=== PATIENT | male | born 1965 | race American Indian/Alaskan Native ===

== ENCOUNTER 2019-06-20 09:17 | Observation (INO) | payer MEDICARE ==
--- NOTE | 2019-06-20 11:09 | Emergency Department Report ---
ED General Adult HPI - General Chief complaint: Extremity Problem,Nontraumatic Stated complaint: LEG PAIN Time Seen by Provider: 06/20/19 11:00 Source: patient Mode of arrival: Wheelchair Limitations: No Limitations - History of Present Illness Initial comments: His is a 53-year-old male with a history of schizophrenia. He called the ambulance today for evaluation of swelling behind his right knee. Somehow this was confused with a exacerbation of his gout. However the patient denies any swelling of any of his joints to include his knees or MTP of either side. He states he had a cramp in the right popliteal fossa area last night which was more severe. He thought the area was swollen today so he decides: Ambulance. A she denies any shortness of breath. He denies any other symptoms at the time of my encounter. He states he is unaware of any occurrence of venous thromboembolism (blood clots) and a family member. He's not had any recent t ravel. -: Gradual, hour(s) Location: right, lower extremity Radiation: non-radiation Quality: other (cramping) Consistency: now resolved Improves with: none Worsens with: none Associated Symptoms: denies other symptoms Treatments Prior to Arrival: none - Related Data Home Medications Medication Instructions Recorded Confirmed Last Taken OLANzapine [Zyprexa] 10 mg PO DAILY 06/10/19 06/10/19 06/09/19 Previous Rx's Medication Instructions Recorded Last Taken Type ALBUTEROL Inhaler (OR & NICU) 2 puff IH QID PRN 30 Days #1 vial 06/13/19 Unknown Rx [Proair] Amoxicillin/Potassium Clav 1 each PO BID #8 tablet 06/13/19 Unknown Rx [Augmentin 875-125 Tablet] Fluticasone/Salmeterol [Advair 1 each IH BID 30 Days blst.w.dev 06/13/19 Unknown Rx 250-50 Diskus] Ipratropium/Albuterol Sulfate 1 ampul IH Q6HRT #30 ampul.neb 06/13/19 Unknown Rx [DUONEB *Not for PRN Use*] Lisinopril [Zestril TAB] 40 mg PO QDAY #30 tablet 06/13/19 Unknown Rx Nicotine [Habitrol] 14 mg TD QDAY #5 patch 06/13/19 Unknown Rx predniSONE [Deltasone] 50 mg PO QDAY #7 tab 06/13/19 Unknown Rx Allergies Allergy/AdvReac Type Severity Reaction Status Date / Time No Known Allergies Allergy Unverified 06/10/19 06:29 ED Review of Systems ROS: Stated complaint: LEG PAIN Other details as noted in HPI Constitutional: denies: chills, fever Eyes: denies: eye pain, eye discharge, vision change ENT: denies: ear pain, throat pain Respiratory: denies: cough, shortness of breath, wheezing Cardiovascular: denies: chest pain, palpitations Endocrine: no symptoms reported Gastrointestinal: denies: abdominal pain, nausea, diarrhea Genitourinary: denies: urgency, dysuria Musculoskeletal: as per HPI. denies: back pain, joint swelling, arthralgia Skin: denies: rash, lesions Neurological: denies: headache, weakness, paresthesias Psychiatric: denies: anxiety, depression Hematological/Lymphatic: denies: easy bleeding, easy bruising ED Past Medical Hx - Past Medical History Hx Psychiatric Treatment: Yes (schizophrenia) Hx Asthma: Yes (childhood) - Surgical History Past Surgical History?: No - Social History Smoking Status: Current Every Day Smoker Substance Use Type: Alcohol - Medications Home Medications: Home Medications Medication Instructions Recorded Confirmed Last Taken Type OLANzapine [Zyprexa] 10 mg PO DAILY 06/10/19 06/10/19 06/09/19 History ALBUTEROL Inhaler (OR & NICU) 2 puff IH QID PRN 30 Days #1 vial 06/13/19 Unknown Rx [Proair] Amoxicillin/Potassium Clav 1 each PO BID #8 tablet 06/13/19 Unknown Rx [Augmentin 875-125 Tablet] Fluticasone/Salmeterol [Advair 1 each IH BID 30 Days blst.w.dev 06/13/19 Unknown Rx 250-50 Diskus] Ipratropium/Albuterol Sulfate 1 ampul IH Q6HRT #30 ampul.neb 06/13/19 Unknown R x [DUONEB *Not for PRN Use*] Lisinopril [Zestril TAB] 40 mg PO QDAY #30 tablet 06/13/19 Unknown Rx Nicotine [Habitrol] 14 mg TD QDAY #5 patch 06/13/19 Unknown Rx predniSONE [Deltasone] 50 mg PO QDAY #7 tab 06/13/19 Unknown Rx ED Physical Exam - General Limitations: No Limitations General appearance: alert, in no apparent distress - Head Head exam: Present: atraumatic, normocephalic - Eye Eye exam: Present: normal appearance. Absent: scleral icterus - ENT ENT exam: Present: mucous membranes moist - Neck Neck exam: Present: normal inspection. Absent: tenderness, meningismus - Respiratory Respiratory exam: Present: normal lung sounds bilaterally. Absent: respiratory distress - Cardiovascular Cardiovascular Exam: Present: regular rate, normal rhythm. Absent: systolic murmur, diastolic murmur, rubs, gallop - GI/Abdominal GI/Abdominal exam: Present: soft, normal bowel sounds. Absent: distended, tenderness, guarding, rebound - Rectal Rectal exam: Present: deferred - Extremities Exam Extremities exam: Present: normal inspection, full ROM, normal capillary refill, other (there appears to be possibly some fullness in the right popliteal fossa compared to the left but no cord and no tenderness found.). Absent: tenderness, pedal edema, joint swelling, calf tenderness - Back Exam Back exam: Present: normal inspection - Neurological Exam Neurological exam: Present: alert, oriented X3, CN II-XII intact. Absent: motor sensory deficit - Psychiatric Psychiatric exam: Present: normal affect, normal mood - Skin Skin exam: Present: warm, dry, intact, normal color. Absent: rash ED Course Vital Signs 06/20/19 06/20/19 06/20/19 09:22 11:02 14:30 Temperature 97.6 F Pulse Rate 105 H 85 Respiratory 20 16 16 Rate Blood Pressure 126/87 Blood Pressure 136/86 [Left] O2 Sat by Pulse 96 96 Oximetry - Reevaluation(s) Reevaluation #1: Still unable to get Doppler exam done. Patient found to be in rhabdomyolysis. He has leukocytosis. Uncertain etiology of his leg pain. Differential diagnosis certainly still includes DVT. Further workup is pending. Discussed with Dr. Wang: Insufficient data for safe discharge. 06/20/19 15:13 ED Medical Decision Making - Lab Data Result diagrams: 06/20/19 11:08 06/20/19 11:08 Laboratory Results - last 24 hr 06/20/19 06/20/19 06/20/19 11:08 11:08 11:08 WBC 19.5 H RBC 4.63 Hgb 14.3 Hct 43.2 MCV 94 MCH 31 MCHC 33 RDW 14.2 Plt Count 320 Lymph % (Auto) 17.8 Walker % (Auto) 6.1 Eos % (Auto) 0.5 Baso % (Auto) 0.5 Lymph # 3.5 Walker # 1.2 H Eos # 0.1 Baso # 0.1 Seg Neutrophils % 75.1 H Seg Neutrophils # 14.7 H PT 13.1 INR 1.02 APTT 24.3 Sodium 141 Potassium 3.2 L Chloride 96.9 L Carbon Dioxide 29 Anion Gap 18 BUN 9 Creatinine 1.0 Estimated GFR > 60 BUN/Creatinine Ratio 9 Glucose 100 Calcium 9.0 Total Bilirubin 0.40 Direct Bilirubin < 0.2 Indirect Bilirubin 0.2 AST 32 ALT 44 Alkaline Phosphatase 57 Total Creatine Kinase CK-MB (CK-2) CK-MB (CK-2) Rel Index Total Protein 7.8 Albumin 4.1 Albumin/Globulin Ratio 1.1 06/20/19 11:15 WBC RBC Hgb Hct MCV MCH MCHC RDW Plt Count Lymph % (Auto) [place] % (Auto) Eos % (Auto) Baso % (Auto) Lymph # Walker # Eos # Baso # Seg Neutrophils % Seg Neutrophils # PT INR APTT Sodium Potassium Chloride Carbon Dioxide Anion Gap BUN Creatinine Estimated GFR BUN/Creatinine Ratio Glucose Calcium Total Bilirubin Direct Bilirubin Indirect Bilirubin AST ALT Alkaline Phosphatase Total Creatine Kinase 1694 H CK-MB (CK-2) 2.1 CK-MB (CK-2) Rel Index 0.1 Total Protein Albumin Albumin/Globulin Ratio Critical care attestation.: If time is entered above; I have spent that time in minutes in the direct care of this critically ill patient, excluding procedure time. ED Disposition Clinical Impression: Right leg pain, Hypokalemia Rhabdomyolysis Qualifiers: Rhabdomyolysis type: non-traumatic Qualified Code(s): M62.82 - Rhabdomyolysis Leukocytosis Qualifiers: Leukocytosis type: unspecified Qualified Code(s): D72.829 - Elevated white blood cell count, unspecified Schizophrenia Qualifiers: Schizophrenia type: unspecified Qualified Code(s): F20.9 - Schizophrenia, unspecified Disposition: OP ADMIT IP TO THIS HOSP Is pt being admited?: Yes Does the pt Need Aspirin: Yes Condition: Stable Time of Disposition: 15:16
[2019-06-20 11:23] LABS: Basophils # (Auto) 0.1 K/mm3 (0.0-0.1); Basophils % (Auto) 0.5 % (0.0-1.8); Eosinophils # (Auto) 0.1 K/mm3 (0.0-0.4); Eosinophils % (Auto) 0.5 % (0.0-4.3); Hematocrit 43.2 % (35.5-45.6); Hemoglobin 14.3 gm/dl (11.8-15.2); Lymphocytes # (Auto) 3.5 K/mm3 (1.2-5.4); Lymphocytes % (Auto) 17.8 % (13.4-35.0); Mean Corpuscular HGB Conc 33 % (32-34); Mean Corpuscular Volume 94 fl (84-94); Monocytes # (Auto) 1.2 K/mm3 (0.0-0.8); Monocytes % (Auto) 6.1 % (0.0-7.3); Platelet Count 320 K/mm3 (140-440); Red Blood Count 4.63 M/mm3 (3.65-5.03); Red Cell Distribution Width 14.2 % (13.2-15.2)
[2019-06-20 11:34] LABS: INR 1.02 (0.87-1.13)
[2019-06-20 11:35] LABS: Partial Thromboplastin Time 24.3 Sec. (24.2-36.6)
[2019-06-20 11:38] LABS: Creatine Kinase MB 2.1 ng/mL (0.0-4.0)
[2019-06-20 11:40] LABS: Alanine Aminotransferase 44 units/L (7-56); Albumin 4.1 g/dL (3.9-5); BUN/Creatinine Ratio 9; Blood Urea Nitrogen 9 mg/dL (9-20); Hemolysis Index 23
[2019-06-20 11:41] LABS: Bilirubin,Direct < 0.2 mg/dL (0-0.2)
[2019-06-20] MEDS ORDERED: HYDROcodone/ACETAMINOPHEN 5-325 MG TAB PO ONE (12:02)
[2019-06-20] MEDS ORDERED: SODIUM CHLORIDE 0.9% 1000 ML 1,000 ML IV ONE ×2 (12:28→15:06)
[2019-06-20] MEDS ORDERED: POTASSIUM CHLORIDE ER 20 MEQ TAB PO ONE (12:28)
[2019-06-20] MEDS ORDERED: ASPIRIN 325 MG TAB PO ONE (15:17)
--- NOTE | 2019-06-20 15:34 | XRay Report ---
CHEST 1 VIEW 3:07 PM INDICATION / CLINICAL INFORMATION: Hypertension. Bilateral leg pain. COMPARISON: 06/10/2019. FINDINGS: SUPPORT DEVICES: None. HEART / MEDIASTINUM: The heart size and pulmonary vasculature are normal. The aorta is normal in [place]. LUNGS / PLEURA: Mild bibasilar subsegmental atelectasis is new. No pneumothorax. ADDITIONAL FINDINGS: No significant additional findings. IMPRESSION: Mild bibasilar subsegmental atelectasis. Signer Name: Manjit Ruiz MD Signed: 06/20/2019 3:30 PM Workstation Name: [id number]
--- NOTE | 2019-06-20 15:35 | XRay Report ---
RIGHT KNEE 2 VIEWS INDICATION / CLINICAL INFORMATION: right knee pain COMPARISON: None available. FINDINGS: BONES and JOINT(S): No acute fracture or subluxation. No significant arthritis. SOFT TISSUES: No significant abnormality. ADDITIONAL FINDINGS: None. IMPRESSION: No acute abnormality of the right knee. Signer Name: Cj Bear MD Signed: 06/20/2019 3:30 PM Workstation Name: [id number]
--- NOTE | 2019-06-20 16:33 | Vascular Lab Report ---
DUPLEX DOPPLER LOWER EXTREMITY VEINS, RIGHT INDICATION: Right popliteal fossa pain. TECHNIQUE: Duplex doppler imaging was performed through the veins of the right lower extremity using venous comp ression and other maneuvers. COMPARISON: None available. FINDINGS: Common femoral vein: Negative. Superficial femoral vein: Negative. Popliteal vein: Negative. Calf veins: Negative. Additional findings: There is no evidence of a popliteal cyst or other significant abnormality. IMPRESSION: No sonographic evidence for DVT in the right lower extremity. Signer Name: Manjit Ruiz MD Signed: 06/20/2019 4:28 PM Workstation Name: [id number]
[2019-06-20] MEDS ORDERED: ALBUTEROL 8.5 GM INHALATION IH PRN (19:01)
[2019-06-20] MEDS ORDERED: ONDANSETRON 4 MG/2 ML INJ IV PRN (19:03)
[2019-06-20] MEDS ORDERED: ACETAMINOPHEN 325 MG TAB PO PRN (19:03)
[2019-06-20] MEDS ORDERED: HYDROmorphone 1 MG/1 ML INJ IV PRN (19:03)
[2019-06-20] MEDS ORDERED: ALBUTEROL 2.5 MG/3 ML NEBU IH PRN (19:19)
[2019-06-20] MEDS: oxyCODONE /ACETAMINOPHEN 5-325MG TAB PO PRN (19:45)
[2019-06-20] MEDS ORDERED: SODIUM CHLORIDE 0.9% 1000 ML 1,000 ML IV SCH (20:00)
[2019-06-20] MEDS: ARFORMOTEROL 15 MCG/2 ML NEBU IH SCH (20:00)
[2019-06-20] MEDS: BUDESONIDE 0.5 MG/2 ML NEBU IH SCH (20:00)
[2019-06-20] MEDS: IPRATROPIUM/ALBUTEROL SULFATE 3 ML AMPUL.NEB IH SCH (20:00)
[2019-06-20] MEDS ORDERED: ENOXAPARIN 40 MG/0.4 ML INJ SUB-Q SCH (20:00)
[2019-06-20] MEDS ORDERED: predniSONE 50 MG TAB PO SCH (20:00)
[2019-06-20] MEDS ORDERED: BUDESONIDE 0.5 MG/2 ML NEBU IH ONE (21:07)
[2019-06-20] MEDS ORDERED: IPRATROPIUM/ALBUTEROL SULFATE 3 ML AMPUL.NEB IH ONE (21:07)
[2019-06-20] MEDS ORDERED: SALMETEROL IH SCH (22:00)
[2019-06-20] MEDS ORDERED: FLUTICASONE IH SCH (22:00)
[2019-06-20] MEDS: LISINOPRIL 40 MG TAB PO SCH (23:49)
[2019-06-20] MEDS ORDERED: SODIUM CHLORIDE 0.9% 1000 ML 1,000 ML ONE (23:54)
[2019-06-21] MEDS: IPRATROPIUM/ALBUTEROL SULFATE 3 ML AMPUL.NEB IH SCH ×3 (03:24→13:25)
[2019-06-21 04:43] LABS: Hematocrit 40.1 % (35.5-45.6); Hemoglobin 13.2 gm/dl (11.8-15.2); Mean Corpuscular HGB Conc 33 % (32-34); Mean Corpuscular Volume 94 fl (84-94); Platelet Count 317 K/mm3 (140-440); Red Blood Count 4.29 M/mm3 (3.65-5.03); Red Cell Distribution Width 14.3 % (13.2-15.2)
[2019-06-21 05:00] LABS: Alanine Aminotransferase 36 units/L (7-56); Albumin 3.7 g/dL (3.9-5); BUN/Creatinine Ratio 13; Blood Urea Nitrogen 10 mg/dL (9-20); Calcium 8.3 mg/dL (8.4-10.2); Hemolysis Index 4
[2019-06-21 05:54] LABS: Basophils % (Manual) 0 % (0.0-1.8); Eosinophils % (Manual) 0 % (0.0-4.3); Total Cells Counted 100
[2019-06-21 05:55] LABS: RBC Morphology Normal
[2019-06-21] MEDS: oxyCODONE /ACETAMINOPHEN 5-325MG TAB PO PRN (06:25)
--- NOTE | 2019-06-21 06:43 | History and Physical Report ---
History of Present Illness Date of examination: 06/20/19 Date of admission: 06/20/19 19:03 Chief complaint: Pain RLE and Rt Knee 1 day History of present illness: 53-year-old male with a history of schizophrenia comes in for evaluation of swelling behind his right knee. He states he had a cramp in the right popliteal fossa area last night which was more severe. He thought the area was swollen today so he decides to come by EMS.No SOB.No recent travel.No fever/chills. Past Medical History Psychiatric Treatment: Yes (schizophrenia) Asthma: Yes (childhood) Surgical History Past Surgical History?: No Social History Smoking Status: Current Every Day Smoker Substance Use Type: Alcohol Family History Htn - Medications Home Medications: Home Medications Medication Instructions Recorded Confirmed Last Taken Type OLANzapine [Zyprexa] 10 mg PO DAILY 06/10/19 06/10/19 06/09/19 History ALBUTEROL Inhaler (OR & NICU) 2 puff IH QID PRN 30 Days #1 vial 06/13/19 Unknown Rx [Proair] Amoxicillin/Potassium Clav 1 each PO BID #8 tablet 06/13/19 Unknown Rx [Augmentin 875-125 Tablet] Fluticasone/Salmeterol [Advair 1 each IH BID 30 Days blst.w.dev 06/13/19 Unknown Rx 250-50 Diskus] Ipratropium/Albuterol Sulfate 1 ampul IH Q6HRT #30 ampul.neb 06/13/19 Unknown Rx [DUONEB *Not for PRN Use*] Lisinopril [Zestril TAB] 40 mg PO QDAY #30 tablet 06/13/19 Unknown Rx Nicotine [Habitrol] 14 mg TD QDAY #5 patch 06/13/19 Unknown Rx predniSONE [Deltasone] 50 mg PO QDAY #7 tab 06/13/19 Unknown Rx Review of Systems ROS: Stated complaint: LEG PAIN Other details as noted in HPI Constitutional: denies: chills, fever Eyes: denies: eye pain, eye discharge, vision change ENT: denies: ear pain, throat pain Respiratory: denies: cough, shortness of breath, wheezing Cardiovascular: denies: chest pain, palpitations Endocrine: no symptoms reported Gastrointestinal: denies: abdominal pain, nausea, diarrhea Genitourinary: denies: urgency, dysuria Musculoskeletal: as per HPI. denies: back pain, joint swelling, arthralgia Skin: denies: rash, lesions Neurological: denies: headache, weakness, paresthesias Psychiatric: denies: anxiety, depression Hematological/Lymphatic: denies: easy bleeding, easy bruising Medications and Allergies Allergies Allergy/AdvReac Type Severity Reaction Status Date / Time No Known Allergies Allergy Unverified 06/10/19 06:29 Home Medications Medication Instructions Recorded Confirmed Last Taken Type OLANzapine [Zyprexa] 10 mg PO DAILY 06/10/19 06/10/19 06/09/19 History ALBUTEROL Inhaler (OR & NICU) 2 puff IH QID PRN 30 Days #1 vial 06/13/19 Unknown Rx [Proair] Amoxicillin/Potassium Clav 1 each PO BID #8 tablet 06/13/19 Unknown Rx [Augmentin 875-125 Tablet] Fluticasone/Salmeterol [Advair 1 each IH BID 30 Days blst.w.dev 06/13/19 Unknown Rx 250-50 Diskus] Ipratropium/Albuterol Sulfate 1 ampul IH Q6HRT #30 ampul.neb 06/13/19 Unknown Rx [DUONEB *Not for PRN Use*] Lisinopril [Zestril TAB] 40 mg PO QDAY #30 tablet 06/13/19 Unknown Rx Nicotine [Habitrol] 14 mg TD QDAY #5 patch 06/13/19 Unknown Rx predniSONE [Deltasone] 50 mg PO QDAY #7 tab 06/13/19 Unknown Rx Active Meds: Active Medications Acetaminophen (Tylenol) 650 mg PO Q4H PRN PRN Reason: Pain MILD(1-3)/Fever >100.5/LOPEZ Albuterol (Proventil) 2.5 mg IH Q4H PRN PRN Reason: Shortness Of Breath Albuterol/Ipratropium (Duoneb *Not For Prn Use*) 1 ampul IH Q6HRT [facility] Last Admin: 06/21/19 03:24 Dose: Not Given Documented by: Arformoterol Tartrate (Brovana Nebu) 15 mcg IH Q12HRT [facility] Last Admin: 06/20/19 20:00 Dose: Not Given Documented by: Budesonide (Pulmicort) 0.5 mg IH Q12HRT [facility] Last Admin: 06/20/19 20:00 Dose: Not Given Documented by: Enoxaparin Sodium (Lovenox) 40 mg SUB-Q Q24H [facility] Last Admin: 06/20/19 20:26 Dose: 40 mg Documented by: Hydromorphone HCl (Dilaudid) 1 mg IV Q3H PRN PRN Reason: Pain , Severe (7-10) Sodium Chloride (Nacl 0.9% 1000 Ml) 1,000 mls @ 100 mls/hr IV DIRECT [facility] Last Admin: 06/20/19 23:55 Dose: 100 mls/hr Documented by: Lisinopril (Zestril) 40 mg PO QDAY [facility] Last Admin: 06/20/19 23:49 Dose: Not Given Documented by: Nicotine (Habitrol) 14 mg TD QDAY [facility] Olanzapine (Zyprexa) 10 mg PO DAILY [facility] Last Admin: 06/20/19 20:25 Dose: 10 mg Documented by: Ondansetron HCl (Zofran) 4 mg IV Q8H PRN PRN Reason: Nausea And Vomiting Oxycodone/Acetaminophen (Percocet 5/325) 1 tab PO Q6H PRN PRN Reason: Pain, Moderate (4-6) Last Admin: 06/21/19 06:25 Dose: 1 tab Documented by: Prednisone (Deltasone) 50 mg PO QDAY [facility] Last Admin: 06/20/19 20:24 Dose: 50 mg Documented by: Sodium Chloride (Sodium Chloride Flush Syringe 10 Ml) 10 ml IV BID [facility] Last Admin: 06/20/19 22:00 Dose: 10 ml Documented by: Sodium Chloride (Sodium Chloride Flush Syringe 10 Ml) 10 ml IV PRN PRN PRN Reason: LINE FLUSH Exam - Constitutional Vitals: Temp Pulse Resp BP Pulse Ox 98.2 F 85 18 135/76 98 06/21/19 05:31 06/21/19 05:31 06/21/19 05:31 06/21/19 05:31 06/21/19 05:31 General appearance: Present: no acute distress, well-nourished - EENT Eyes: Present: PERRL ENT: hearing intact, clear oral mucosa - Neck Neck: Present: supple, normal ROM - Respiratory Respiratory effort: normal Respiratory: bilateral: CTA - Cardiovascular Heart rate: 78 Rhythm: regular Heart Sounds: Present: S1 & S2. Absent: rub, click - Extremities Extremities: no ischemia (Rt Knee and RLE swelling,No Erythema.), pulses symmetrical, No edema Extremity abnormal: tenderness Peripheral Pulses: within normal limits - Abdominal General gastrointestinal: Present: soft, non-tender, non-distended, normal bowel sounds Male genitourinary: Present: normal - Integumentary Integumentary: Present: clear, warm, dry - Musculoskeletal Musculoskeletal: gait normal, strength equal bilaterally - Psychiatric Psychiatric: appropriate mood/affect, intact judgment & insight - Neurologic Neurologic: CNII-XII intact, moves all extremities Results - Labs CBC & Chem 7: 06/21/19 04:27 06/21/19 04:27 Labs: Laboratory Last Values WBC 15.2 K/mm3 (4.5-11.0) H 06/21/19 04:27 RBC 4.29 M/mm3 (3.65-5.03) 06/21/19 04:27 Hgb 13.2 gm/dl (11.8-15.2) 06/21/19 04:27 Hct 40.1 % (35.5-45.6) 06/21/19 04:27 MCV 94 fl (84-94) 06/21/19 04:27 MCH 31 pg (28-32) 06/21/19 04:27 MCHC 33 % (32-34) 06/21/19 04:27 RDW 14.3 % (13.2-15.2) 06/21/19 04:27 Plt Count 317 K/mm3 (140-440) 06/21/19 04:27 Lymph % (Auto) 17.8 % (13.4-35.0) 06/20/19 11:08 [place] % (Auto) 6.1 % (0.0-7.3) 06/20/19 11:08 Eos % (Auto) 0.5 % (0.0-4.3) 06/20/19 11:08 Baso % (Auto) 0.5 % (0.0-1.8) 06/20/19 11:08 Lymph # 3.5 K/mm3 (1.2-5.4) 06/20/19 11:08 [place] # 1.2 K/mm3 (0.0-0.8) H 06/20/19 11:08 Eos # 0.1 K/mm3 (0.0-0.4) 06/20/19 11:08 Baso # 0.1 K/mm3 (0.0-0.1) 06/20/19 11:08 Add Manual Diff Complete 06/21/19 04:27 Total Counted 100 06/21/19 04:27 Seg Neutrophils % [employer] 06/21/19 04:27 Seg Neuts % (Manual) 91.0 % (40.0-70.0) H 06/21/19 04:27 0 % 06/21/19 04:27 7.0 % (13.4-35.0) L 06/21/19 04:27 Reactive Lymphs % (Man) 0 % 06/21/19 04:27 2.0 % (0.0-7.3) 06/21/19 04:27 0 % (0.0-4.3) 06/21/19 04:27 0 % (0.0-1.8) 06/21/19 04:27 0 % 06/21/19 04:27 0 % 06/21/19 04:27 0 % 06/21/19 04:27 0 % 06/21/19 04:27 Nucleated RBC % Not Reportable 06/21/19 04:27 Seg Neutrophils # 14.7 K/mm3 (1.8-7.7) H 06/20/19 11:08 Seg Neutrophils # Man 13.8 K/mm3 (1.8-7.7) H 06/21/19 04:27 Band Neutrophils # 0.0 K/mm3 06/21/19 04:27 1.1 K/mm3 (1.2-5.4) L 06/21/19 04:27 Abs React Lymphs (Man) 0.0 K/mm3 06/21/19 04:27 0.3 K/mm3 (0.0-0.8) 06/21/19 04:27 0.0 K/mm3 (0.0-0.4) 06/21/19 04:27 0.0 K/mm3 (0.0-0.1) 06/21/19 04:27 0.0 K/mm3 06/21/19 04:27 0.0 K/mm3 06/21/19 04:27 0.0 K/mm3 06/21/19 04:27 Blast Cells # 0.0 K/mm3 06/21/19 04:27 WBC Morphology Not Reportable 06/21/19 04:27 Hypersegmented Neuts Not Reportable 06/21/19 04:27 Hyposegmented Neuts Not Reportable 06/21/19 04:27 Hypogranular Neuts Not Reportable 06/21/19 04:27 Not Reportable 06/21/19 04:27 Not Reportable 06/21/19 04:27 Not Reportable 06/21/19 04:27 Not Reportable 06/21/19 04:27 Not Reportable 06/21/19 04:27 Not Reportable 06/21/19 04:27 Not Reportable 06/21/19 04:27 Not Reportable 06/21/19 04:27 Plt Clumps, EDTA Not Reportable 06/21/19 04:27 Not Reportable 06/21/19 04:27 Not Reportable 06/21/19 04:27 Not Reportable 06/21/19 04:27 Plt Morphology Comment Not Reportable 06/21/19 04:27 RBC Morphology Normal 06/21/19 04:27 Dimorphic RBCs Not Reportable 06/21/19 04:27 Not Reportable 06/21/19 04:27 Not Reportable 06/21/19 04:27 Not Reportable 06/21/19 04:27 Not Reportable 06/21/19 04:27 Not Reportable 06/21/19 04:27 Not Reportable 06/21/19 04:27 Not Reportable 06/21/19 04:27 Not Reportable 06/21/19 04:27 Not Reportable 06/21/19 04:27 Not Reportable 06/21/19 04:27 Not Reportable 06/21/19 04:27 Not Reportable 06/21/19 04:27 Not Reportable 06/21/19 04:27 Not Reportable 06/21/19 04:27 Not Reportable 06/21/19 04:27 Not Reportable 06/21/19 04:27 Not Reportable 06/21/19 04:27 Not Reportable 06/21/19 04:27 Not Reportable 06/21/19 04:27 Acanthocytes (Spur) Not Reportable 06/21/19 04:27 Rouleaux Not Reportable 06/21/19 04:27 Not Reportable 06/21/19 04:27 Not Reportable 06/21/19 04:27 Not Reportable 06/21/19 04:27 Not Reportable 06/21/19 04:27 Hem Pathologist Commnt No 06/21/19 04:27 PT 13.1 Sec. (12.2-14.9) 06/20/19 11:08 INR 1.02 (0.87-1.13) 06/20/19 11:08 APTT 24.3 Sec. (24.2-36.6) 06/20/19 11:08 229.32 ng/mlDDU (0-234) 06/20/19 15:04 Sodium 140 mmol/L (137-145) 06/21/19 04:27 Potassium 4.4 mmol/L (3.6-5.0) D 06/21/19 04:27 Chloride 105.7 mmol/L (98-107) 06/21/19 04:27 Carbon Dioxide 26 mmol/L (22-30) 06/21/19 04:27 13 mmol/L 06/21/19 04:27 BUN 10 mg/dL (9-20) 06/21/19 04:27 0.8 mg/dL (0.8-1.5) 06/21/19 04:27 Estimated GFR > 60 ml/min 06/21/19 04:27 13 % 06/21/19 04:27 Glucose 148 mg/dL (75-100) H 06/21/19 04:27 5.9 % (4-6) 06/20/19 19:45 Lactic Acid 1.80 mmol/L (0.7-2.0) 06/20/19 15:04 Calcium 8.3 mg/dL (8.4-10.2) L 06/21/19 04:27 0.30 mg/dL (0.1-1.2) 06/21/19 04:27 < 0.2 mg/dL (0-0.2) 06/20/19 11:08 0.2 mg/dL 06/20/19 11:08 AST 28 units/L (5-40) 06/21/19 04:27 ALT 36 units/L (7-56) 06/21/19 04:27 56 units/L (35-129) 06/21/19 04:27 1508 units/L (55-170) H 06/21/19 04:27 CK-MB (CK-2) 2.1 ng/mL (0.0-4.0) 06/20/19 11:15 CK-MB (CK-2) Rel Index 0.1 (0-4) 06/20/19 11:15 7.0 g/dL (6.3-8.2) 06/21/19 04:27 3.7 g/dL (3.9-5) L 06/21/19 04:27 1.1 % 06/21/19 04:27 Short CBC 06/20/19 06/21/19 Range/Units 11:08 04:27 WBC 19.5 H 15.2 H (4.5-11.0) K/mm3 Hgb 14.3 13.2 (11.8-15.2) gm/dl Hct 43.2 40.1 (35.5-45.6) % Plt Count 320 317 (140-440) K/mm3 BMP 06/20/19 06/21/19 11:08 04:27 Sodium 141 140 Potassium 3.2 L 4.4 D Chloride 96.9 L 105.7 Carbon Dioxide 29 26 BUN 9 10 Creatinine 1.0 0.8 Glucose 100 148 H Calcium 9.0 8.3 L Cardiac Enzymes 06/20/19 06/20/19 06/21/19 Range/Units 11:15 19:45 04:27 Total Creatine Kinase 1694 H 1626 H 1508 H (55-170) units/L CK-MB (CK-2) 2.1 (0.0-4.0) ng/mL Liver Function 06/20/19 06/21/19 Range/Units 11:08 04:27 Total Bilirubin 0.40 0.30 (0.1-1.2) mg/dL Direct Bilirubin < 0.2 (0-0.2) mg/dL AST 32 28 (5-40) units/L ALT 44 36 (7-56) units/L Alkaline Phosphatase 57 56 (35-129) units/L Albumin 4.1 3.7 L (3.9-5) g/dL - Imaging and Cardiology Chest x-ray: report reviewed (Mild bibasilar subsegmental atelectasis.) Venous US: pending, report reviewed (No DVT) Imaging and Cardiology: Rt Knee NAF Assessment and Plan Advance Directives: Yes (Full code) VTE prophylaxis?: Chemical Plan of care discussed with patient/family: Yes - Patient Problems (1) Rhabdomyolysis Current Visit: Yes Status: Acute Qualifiers: Rhabdomyolysis type: non-traumatic Qualified Code(s): M62.82 - Rhabdomyolysis Plan to address problem: IV Fluids for now CK q12 hours (2) Leukocytosis Current Visit: Yes Status: Acute Qualifiers: Leukocytosis type: unspecified Qualified Code(s): D72.829 - Elevated white blood cell count, unspecified Plan to address problem: Demargination No abx for now (3) Right leg pain Current Visit: Yes Status: Acute Plan to address problem: No Gout No increased warmth or tenderness behind Rt knee (4) Schizophrenia Current Visit: Yes Status: Chronic Qualifiers: Schizophrenia type: unspecified Qualified Code(s): F20.9 - Schizophrenia, unspecified Plan to address problem: Cont antipsychotics (5) COPD (chronic obstructive pulmonary disease) Current Visit: Yes Status: Chronic Qualifiers: Emphysema type: unspecified Plan to address problem: Cont Bronchodilators (6) HTN (hypertension) Current Visit: Yes Status: Chronic Qualifiers: Hypertension type: essential hypertension Qualified Code(s): I10 - Essential (primary) hypertension Plan to address problem: Cont antihyperensives (7) DVT prophylaxis Current Visit: Yes Status: Acute Plan to address problem: Cont Lovenox and GI prophylaxis
[2019-06-21] MEDS: BUDESONIDE 0.5 MG/2 ML NEBU IH SCH (07:45)
[2019-06-21] MEDS: ARFORMOTEROL 15 MCG/2 ML NEBU IH SCH (07:45)
--- NOTE | 2019-06-21 09:29 | Discharge Summary ---
Providers - Providers Date of Admission: 06/20/19 19:03 Date of discharge: 06/21/19 Attending physician: AWILDA SILVEIRA MD Hospitalization Reason for admission: knee pain and swelling Condition: Stable Hospital course: 53-year-old male with a history of schizophrenia comes in for evaluation of swelling behind his right knee. He states he had a cramp in the right popliteal fossa area last night which was more severe. He thought the area was swollen today so he decides to come by EMS.No SOB.No recent travel.No fever/chills. In the emergency department x-ray of the knee was done and negative, Doppler ultrasound was done and negative for DVT. On my examination and didn't have a swelling or tenderness. Patient had elevated CK was treated with IV fluid and trending down. Patient symptoms resolved. Patient has leukocytosis is likely due to steroid. Patient discharged home with NSAIDs. Patient was hemodynamically stable and discussed the management plan with him. Disposition: DC-01 TO HOME OR SELFCARE Time spent for discharge: 32 minutes - Discharge Diagnoses (1) Leukocytosis Status: Acute Qualifiers: Leukocytosis type: unspecified Qualified Code(s): D72.829 - Elevated white blood cell count, unspecified (2) Rhabdomyolysis Status: Acute Qualifiers: Rhabdomyolysis type: non-traumatic Qualified Code(s): M62.82 - Rhabdomyolysis (3) Right leg pain Status: Acute Core Measure Documentation - Palliative Care Palliative Care/ Comfort Measures: Not Applicable - Core Measures Any of the following diagnoses?: none Exam - Physical Exam Narrative exam: Not in cardiopulmonary distress. The patient is obese. Vital signs as documented. Head exam is unremarkable. No scleral icterus . Neck is without jugular venous distension, thyromegaly, or carotid bruits. Lungs are clear to auscultation. Cardiac exam reveals regular rate and Rhythm. First and second heart sounds normal. No murmurs, rubs or gallops. Abdominal exam reveals normal bowel sounds, no masses, no organomegaly and no aortic enlargement. Extremities are nonedematous and both femoral and pedal pulses are normal. 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 No focal weakness. - Constitutional Vitals: Temp Pulse Resp BP Pulse Ox 98.2 F 85 18 135/76 98 06/21/19 05:31 06/21/19 05:31 06/21/19 05:31 06/21/19 05:31 06/21/19 05:31 Plan Activity: no restrictions Weight Bearing Status: Full Weight Bearing Diet: low salt Follow up with: ANNETTE SESAY [Other] - 3-5 Days Prescriptions: Ibuprofen [Motrin 400 MG tab] 400 mg PO Q8H PRN #20 tablet PRN Reason: Pain , Severe (7-10)
[2019-06-21] MEDS ORDERED: NICOTINE 14 MG/24 HR PATCH TD SCH (10:00)
[2019-06-21] MEDS: LISINOPRIL 40 MG TAB PO SCH (11:19)
[2019-06-21 11:20] VITALS: BP 125/78
== END 2019-06-21 13:20 | disposition home or self-care (01) ==
LOC: ED 09:17 → INTOOBSV 19:03 → 3A 19:03
PROVIDERS: ADMIT Internal Medicine; ATTEND Internal Medicine
DX: M62.82 Rhabdomyolysis (principal); E87.6 Hypokalemia; D72.829 Elevated white blood cell count, unspecified; M79.661 Pain in right lower leg; F20.9 Schizophrenia, unspecified; J44.9 Chronic obstructive pulmonary disease, unspecified; I10 Essential (primary) hypertension; F17.200 Nicotine dependence, unspecified, uncomplicated
CPT/HCPCS: 36415; 71045; 73560; 80048; 80053; 80076; 82140; 82550; 82553; 83036; 85007; 85025; 85379; 85610; 85730; 87040; 93005; 93010; 93971; 94640; 96360; 96361; 96372; 99284; G0378; J1650; J7030; J7512